=== PATIENT | female | born 1995 | race Two or more races ===

== ENCOUNTER → 2024-06-29 | Outpatient (CLI) | payer MEDICAID, SELFPAY ==
--- NOTE | 2024-06-29 | XR_ITS ---
Examination: MRI cervical spine without intravenous contrast Date and time of exam: June 29, 2024 0704 hrs. Indications: Neck pain radiating to the right arm beginning 2016 Technique: Multiple axial and sagittal sections of the cervical spine to been obtained. T2 weighted sagittal sections, TR 3, 270, TE 117 T1-weighted sagittal sections, TR 500, TE 11 T1-weighted axial sections, TR 607, TE 12, axial sections TR 18, TE 27 and T2 weighted transverse sections, TR 3920, TE 122. Findings: Adequate alignment cervical vertebral bodies No cervical fracture Intact odontoid No cervical disc narrowing No localized enlargement cervical cord Axial images demonstrate no focal cervical disc protrusion Impression: No cervical fracture No cervical disc narrowing No acquired soft tissue spinal stenosis
--- NOTE | 2024-06-29 | XR_ITS ---
MRI shoulder, right, without contrast. Date and time: June 29, 2024 0704 hrs. Indications: Neck pain radiating to the right arm beginning April 2017 Since paresthesias in the right upper extremity Technique: Multiple axial, sagittal and coronal sections of the shoulder have been obtained. Siemens high-resolution 1.5 María Elena MRI scanner is utilized. Axial fat-suppressed sections, TR 2350, TE 18 T2-weighted coronal fat-saturated images, TR 3500, TE 7100 T1-weighted coronal images, TR 500, TE 15 T2-weighted sagittal fat-saturated images, TR 3500, TE 57 T1-weighted sagittal sections, TR 504, TE 13. Findings: Supraspinatus tendon insertion is intact. Infraspinatus tendon insertion is intact. Subscapularis insertion is intact. Subscapularis bursa is not seen. Long head of the biceps is in the bicipital groove. No definite tear of the biceps superior labral anchor is seen. Retraction of the musculotendinous junction of the rotator cuff is not seen . Tendinosis pattern is noted seen. Distance between the acromium and humeral head is 4.9 mm Atrophy of the supraspinatus muscle is noted seen. Atrophy of the infraspinatus muscle is not seen. Sagittal sections demonstrate a horizontal acromion. Acromioclavicular joint demonstrates no significant arthritic change Osacromiale is not identified. Anterior superior labral tears. Bony glenoid fossa on the sagittal sections does not demonstrate osseous defect. Occult fracture or area of avascular necrosis is not seen. Acromioclavicular joint separation is not visible. Defect in the posterolateral margin of the humeral head is not seen Impression: Rotator cuff intact Anterior superior labral tears
== END | disposition home or self-care (01) ==
LOC: SMRI 06:46
DX: M54.2 Cervicalgia (principal); S43.431A Superior glenoid labrum lesion of right shoulder, initial encounter; X58.XXXA Exposure to other specified factors, initial encounter; Z87.39 Personal history of other diseases of the musculoskeletal system and connective tissue
CPT/HCPCS: 72141; 73221

== ENCOUNTER 2024-08-01 09:49 | Outpatient (RCR) | payer MEDICAID, SELFPAY ==
--- NOTE | 2024-08-01 10:22 | PTNOTE_ITS ---
PT OP Initial Eval Patient Information Outpatient Physical Therapy Treatment Date: 08/01/24 Visit Reasons: Right shoulder pain Medical Diagnosis: Right Shoulder Pain Treatment Dx #1: Right Shoulder Pain Start of Care: 08/01/24 Smoking Status Smoking Status: Never smoker Initial Assessment Subjective: Pt is a 29 y/o female reports of right shoulder pain after her ganglion cyst removal several months ago. Pt's most recent MRI showed torn superior labrum. Pt has not seen a surgeon yet. Pt has limitation with lifting, gripping, overhead motions, chores, self care, and performing recreational activities. Objective: Right Shoulder AROM: all motions are WFL Right Shoulder MMTs: grossly 4/5 Right Scapula MMTs: grossly 4/5 Special Test (+) active hunter's Palpation: TTP long head of biceps Assessment: Pt demonstrate functional right shoulder mobility and strength leading to minimal impairments. At this time Pt will not benefit from physical therapy. Recommend ortho consultation to determine severity of labrum tear. Pt was evaluated and d/c from care; thank you for your referrals. Short Term and Senior Care Goals 1) Eval and D/C 2) Follow up with MD GUTIERREZ Procedure Charges OP PT Eval Mod Complex 30 minutes: Yes
== END 2024-08-02 23:59 | disposition home or self-care (01) ==
LOC: CPTX 09:49
DX: M25.511 Pain in right shoulder (principal); S43.431D Superior glenoid labrum lesion of right shoulder, subsequent encounter; X58.XXXD Exposure to other specified factors, subsequent encounter
CPT/HCPCS: 97162

== ENCOUNTER 2025-04-24 20:10 | Inpatient (IN) | payer MEDICAID, SELFPAY ==
[2025-04-24] VITALS (16 sets, daily range): BP systolic 123–143; BP diastolic 67–91; PULSE 75–113; RESP 16–97; TEMP 36.9; O2SAT 95–98; BMI 40.6
[2025-04-24 20:52] LABS: ROM Kit Lot # 58106258; ROM Swab Mixed By: MARTB3; Swb Mxed in Solvent 1 min? Yes
[2025-04-24 20:53] LABS: Rupture of Fetal Membranes Positive (Negative)
[2025-04-24 21:50] LABS: Basophils # (Auto) 0.0 Thou/mm3 (0.0-0.2); Basophils % (Auto) 0 % (0-2.5); Eosinophils # (Auto) 0.0 Thou/mm3 (0.0-0.5); Eosinophils % (Auto) 0 % (0-10); Hematocrit 39.1 % (36.0-46.0); Hemoglobin 13.7 g/dL (12.0-16.0); Immature Granulocytes Auto 0.05 Thou/mm3 (0.00-0.00); Lymphocytes # (Auto) 3.0 Thou/mm3 (1.0-4.8); Lymphocytes % (Auto) 30 % (10-50); Mean Corpuscular HGB Conc 35.0 g/dl (31.0-37.0); Mean Corpuscular Hemoglobin 30.6 pg (25.0-35.0); Mean Corpuscular Volume 87 fL (80-100); Monocytes # (Auto) 1.0 Thou/mm3 (0.0-0.8); Monocytes % (Auto) 10 % (0-12); Neutrophils # (Auto) 6.0 Thou/mm3 (1.8-7.7); Neutrophils % (Auto) 60 % (37-80); Nucleated Red Blood Cell # 0.00 Thou/mm3 (0.00-0.00); Nucleated Red Blood Cell % 0 /100 WBC (0); Platelet Count 306 Thou/mm3 (140-440); RDW Standard Deviation 41.2 fL (36.4-46.3); Red Blood Count 4.48 Miln/mm3 (4.00-5.20); White Blood Count 10.0 Thou/mm3 (3.6-11.0)
--- NOTE | 2025-04-24 21:56 | PD.LDHP ---
Documentation for date of: 04/24/25 OB Labor/Induct. HPI History of Present Illness : 1 Para: 0 Term pregnancies: 0 pregnancies: 0 Living children: 0 History of Abortions: Spontaneous and Elective: 0 History of Vaginal deliveries: 0 History of sections: No History of : No Date of last menstrual period: 08/04/24 NILDA: 05/11/25 Gestational age based on last menstrual period: 36 History of present illness: H and P dictated in Nuance on STAT line #9: [id number] History of Present Adequate Care: Yes Labs Labs: Positive: Rubella Titre, Negative: RPR, Hepatitis B and HIV and Unknown: Chlamydia, Gonorrhea, Herpes Type 1, Herpes Type 2, Group Beta Strep and Covid-19 Past Medical History Surgical History SURGICAL: Negative Section Meds Home Medications and Allergies Allergies Allergy/AdvReac Type Severity Reaction Status Date / Time No Known Allergies Allergy Verified 04/24/25 21:05 OB Exam Physical Exam Vital signs: Temp Pulse Resp BP Pulse Ox 98.5 F 83 18 143/91 H 98 04/24/25 20:24 04/24/25 20:56 04/24/25 20:24 04/24/25 20:56 04/24/25 21:05 OB Results Labs 04/24/25 21:25 04/24/25 21:25
[2025-04-24] MEDS: Ampicillin Inj 2,000 MG in SODIUM CHLORIDE 0.9% (POP) 100 ML 200 MG IV (22:03)
[2025-04-24] MEDS: RINGERS LACTATED 1000 ML 1,000 ML 125 ML IV (22:03)
[2025-04-24 23:00] LABS: Fibrinogen 618 mg/dL (175-375); INR 0.9 (0.9-1.3); Partial Thromboplastin Time 27.2 Seconds (22.0-36.0); Prothrombin Time 9.8 Seconds (9.0-12.2)
[2025-04-24] MEDS: GENTAMICIN/NS 80 MG IVPB 80 MG in PRE-MIXED 1 BAG 50 MG IV (23:11)
[2025-04-25] VITALS (288 sets, daily range): BP systolic 98–182; BP diastolic 51–85; PULSE 54–166; RESP 16–22; TEMP 36.9–37.4; O2SAT 57–100
[2025-04-25 00:05] LABS: Syphilis Nonreactive (Nonreactive)
[2025-04-25 01:36] LABS: Alanine Aminotransferase 16 U/L (10-49); Albumin, Serum 4.1 gm/dL (3.5-5.0); Albumin/Globulin Ratio 1.5 (1.2-2.2); Alkaline Phosphatase 307 U/L (46-116); Anion Gap 10 (7-16); Aspartate Amino Transferase 30 U/L (0-34); BUN/Creatinine Ratio 8 Ratio (12-20); Bilirubin,Total 0.9 mg/dL (0.3-1.2); Blood Urea Nitrogen 6 mg/dL (9-23); Calcium 9.7 mg/dL (8.3-10.6); Calcium (Corrected) 9.7 mg/dL (8.5-10.1); Carbon Dioxide 24.0 mMol/L (20.0-31.0); Chloride 105 mMol/L (98-107); Creatinine (Component) 0.8 mg/dL (0.6-1.3); Estimated Creatinine Clearance 117.6 mL/min (>60); Globulin 2.7 gm/dL (2.3-3.5); Glucose 90 mg/dL (74-106); Osmolality,Calculated 275 (275-295); Potassium 4.0 mMol/L (3.4-5.1); Sodium 139 mMol/L (136-145); Total Protein 6.8 gm/dL (5.7-8.2); Uric Acid 4.0 mg/dL (3.1-7.8); eGFR > 60 See Note
[2025-04-25] MEDS: OXYTOCIN in NS 30 units 30 UNIT/500 ML BAG IV (02:34)
[2025-04-25] MEDS: Ampicillin Inj 2,000 MG in SODIUM CHLORIDE 0.9% (POP) 100 ML 100 MG IV ×2 (03:53→11:37)
--- NOTE | 2025-04-25 06:33 | PD.LDPN ---
Documentation for date of: 04/25/25 OB Labor Progress Note Pelvic Exam Dilation (cm): 3 Effacement (%): 80 station: -2 Amniotic membrane status: Leaking Contractions Monitor mode: External Contraction frequency: 3-7 Contraction pattern: Tetanic Contraction intensity: Mild Status status: Category l Assessment and Plan Comments: Epidural Anticipate Amp/Gent for prolonged rupture of membranes History of Present Illness HPI Wants an Epidural
[2025-04-25] MEDS: GENTAMICIN/NS 80 MG IVPB 80 MG in PRE-MIXED 1 BAG 50 MG IV ×2 (07:18→14:49)
[2025-04-25 09:36] LABS: Chlamydia trachomatis PCR Negative (Not Detect); Neisseria Gonorrhoeae DNA PCR Negative (Not Detect); Trichomonas Negative (Negative)
--- NOTE | 2025-04-25 10:32 | ESHP_ITS ---
RE: KALE NINA : 1995 DATE OF ADMISSION: 04/24/2025 HISTORY OF PRESENT ILLNESS: This is a 30-year-old 1, para 0 with due date of 05/11/2025 with intrauterine at 37 weeks and 4 days, who presents to labor and delivery complaining of leaking since 10:00 this morning and is noted to be ruptured and in early labor, the patient has history of gestational diabetes mellitus during her , but she is diet controlled. She had a maternal medicine ultrasound during her , which showed normal anatomy. Her most recent ultrasound on 04/16/2025 showed overall growth at the 67th percentile. ALLERGIES: NO KNOWN DRUG ALLERGIES. MEDICATIONS: 1. multivitamin 1 p.o. daily. 2. Aspirin 81 mg 1 p.o. daily. PAST MEDICAL HISTORY: Gestational diabetes mellitus class A2, polycystic ovarian syndrome, urinary tract infection due to group B strep in the first trimester, cervical dysplasia, chlamydia cervicitis, obesity. SOCIAL HISTORY: She denies any alcohol, drug use or smoking. FAMILY HISTORY: Hypertension, stroke, diabetes, autism. REVIEW OF SYSTEMS: She denies any chest pain, palpitations, cough, fever, shortness of breath or lower extremity pain. She denies any headache, change in vision or right upper quadrant pain. PHYSICAL EXAMINATION: VITAL SIGNS: Blood pressure 121/80, heart rate 88, respiration 18, temperature is 98.6. HEENT: Oropharynx and sclerae clear. LUNGS: Clear to auscultation bilaterally. HEART: Regular rate and rhythm. ABDOMEN: Gravid consistent with estimated weight 7.5 pounds. Pelvic Exam: See RN notes. EXTREMITIES: Nontender. SKIN: No gross rashes or lesions. NEUROLOGIC: No focal deficit. ASSESSMENT AND PLAN: Intrauterine at 37 weeks and 4 days, gestational diabetes mellitus class A2, labor, anticipate spontaneous vaginal delivery, ampicillin, gentamicin for prolonged rupture of membranes. Informed consent was obtained. The patient was made aware of the risks complications, alternatives and benefits of the proposed procedure and she agrees with operative vaginal delivery and delivery if indicated. DT: 21:20:16 TT: 22:04:00 Ref: [id number] - TID: [id number] [facility]
[2025-04-25] MEDS: RINGERS LACTATED 1000 ML 1,000 ML 125 ML IV ×2 (11:05→14:51)
--- NOTE | 2025-04-25 16:37 | PD.LDPN ---
Documentation for date of: 04/25/25 OB Labor Progress Note Pain Control Comments: Epidural Pelvic Exam Dilation (cm): 10 Effacement (%): 100 station: -1 Amniotic membrane status: Ruptured Contractions Monitor mode: External Contraction frequency: 2-3 Contraction pattern: Tetanic Contraction intensity: Moderate Status status: Category ll Assessment and Plan Comments: Epidural off to mount a better expulsive effort Encourage Effective Pushing
--- NOTE | 2025-04-25 17:26 | PD.LDDS ---
DS: Providers Provider Date of admission: 04/24/25 22:07 Primary care physician: Physician No Primary/Family Admitting Provider: Reuben Soriano MD Attending Provider on Admission: Reuben Soriano MD Attending Provider on DC: Reuben Soriano MD Discharging Provider: Reuben Soriano MD DS: Diagnosis Problem List Completed Was Problem List Reviewed/Reconciled?: Yes Summary/Hosp Course Brief History: Wants an Epidural Peripartum Data Delivery Method: Normal Vaginal Delivery Episiotomy Description: None Time Spent with Patient Time attestation: Total time spent providing and/or coordinating discharge services: Exam Vital Signs Temp Pulse Resp BP Pulse Ox O2 Del Method 98.6 F 97 18 126/71 98 Room Air 04/25/25 16:05 04/25/25 17:24 04/25/25 16:05 04/25/25 17:24 04/25/25 17:23 04/25/25 16:05 Discharge Plan Plan Patient Disposition: HOME (Self Care) Patient condition on transfer: Stable Prescriptions/Referrals Prescriptions/Med Rec: New ibuprofen 600 mg tablet 600 mg PO Q6H PRN (Reason: pain) Qty: 30 0RF Discontinued ibuprofen 800 mg tablet 800 mg PO Q8H Qty: 30 0RF Referrals: No Primary/Family,Physician [Primary Care Provider] Patient/Caregiver Discharge Instructions Discharge Activity: activity as tolerated Other Discharge Activity Instructions:: Follow up office 6 weeks Education Materials: After a Vaginal , After Delivery Concerns, Breast Care After Print Language: Arabic Stand Alone Forms: Eun Award Info., Patient Portal Info Letter Discharge Order Discharge Orders: Discharge (Routine); Ordered 04/26/25 Ordered By: Reuben Soriano Planned Discharge Date 04/26/25
[2025-04-25] MEDS: BENZO/LANO/ALOE (Dermoplast) 60 GM CAN 1 SPRAY TOP (17:40)
[2025-04-25] MEDS: TRANEXAMIC ACID 1,000 MG IVPB 1,000 MG/100 ML BAG 200 MG IV (17:40)
[2025-04-25] MEDS: OXYTOCIN in NS 20 units 20 UNIT/1,000 ML BAG 125 UNIT IV (17:40)
[2025-04-25] MEDS: MINERAL OIL 30 ML UDC TOP (17:41)
[2025-04-25] MEDS: IBUPROFEN TAB 400 MG TABLET 800 MG PO (19:07)
[2025-04-25 22:23] LABS: Basophils # (Auto) 0.0 Thou/mm3 (0.0-0.2); Basophils % (Auto) 0 % (0-2.5); Eosinophils # (Auto) 0.0 Thou/mm3 (0.0-0.5); Eosinophils % (Auto) 0 % (0-10); Hematocrit 35.2 % (36.0-46.0); Hemoglobin 12.3 g/dL (12.0-16.0); Immature Granulocytes Auto 0.07 Thou/mm3 (0.00-0.00); Lymphocytes # (Auto) 1.7 Thou/mm3 (1.0-4.8); Lymphocytes % (Auto) 10 % (10-50); Mean Corpuscular HGB Conc 34.9 g/dl (31.0-37.0); Mean Corpuscular Hemoglobin 31.4 pg (25.0-35.0); Mean Corpuscular Volume 90 fL (80-100); Monocytes # (Auto) 1.0 Thou/mm3 (0.0-0.8); Monocytes % (Auto) 6 % (0-12); Neutrophils # (Auto) 14.5 Thou/mm3 (1.8-7.7); Neutrophils % (Auto) 84 % (37-80); Nucleated Red Blood Cell # 0.00 Thou/mm3 (0.00-0.00); Nucleated Red Blood Cell % 0 /100 WBC (0); Platelet Count 265 Thou/mm3 (140-440); RDW Standard Deviation 43.8 fL (36.4-46.3); Red Blood Count 3.92 Miln/mm3 (4.00-5.20); White Blood Count 17.2 Thou/mm3 (3.6-11.0)
[2025-04-26] VITALS: BP 113/73; PULSE 99; RESP 16; TEMP 36.8; O2SAT 97
[2025-04-26 03:44] VITALS: BP 124/69; PULSE 89; RESP 18; TEMP 36.6; O2SAT 96
[2025-04-26 07:10] VITALS: BP 110/74; PULSE 89; RESP 16; TEMP 36.6; O2SAT 96
--- NOTE | 2025-04-26 07:34 | ESPR_ITS ---
RE: KALE NINA : 1995 DATE OF SERVICE: 04/26/2025 day number 1. The patient denies any problem or complaint. Blood pressure 124/69, heart rate 89, respirations 18, temperature is 97.8. Pulse ox is 96% on room air. Lungs clear to auscultation bilaterally. Heart, regular rate and rhythm. Abdomen, fundus is firm. Extremities nontender. Hemoglobin pre-delivery is 13.7, post-delivery is 12.3. ASSESSMENT: day number 1, status post spontaneous vaginal delivery. PLAN: Discharge home when baby is cleared. Discharge instructions given. Follow up in the office in 6 weeks. DT: 07:18:22 TT: 07:32:00 Ref: [id number] - TID: [id number]
[2025-04-26] MEDS: DOCUSATE SOD 100 MG CAPSULE PO (08:25)
--- NOTE | 2025-04-26 10:29 | PC.SS ---
OFFICE EXECUTIVEAlba, met with patient [id number] to do initial assessment due to having a history of depression and anxiety. FELTER TENNIS [employer]ALLS introduced herself, role in the agency, reason for visit, and discussed limits of confidentiality. Patient appeared alert and oriented to self, time, place, and situation. Patient appears stated age. Patient made good eye contact. Patient?s attitude appeared pleasant and cooperative. Patient?s behavior appeared ordinary. Patient?s mood appears ordinary. No signs of delusions or hallucinations. This is 30-year-old, monolingual, single, female who presented to the hospital to deliver her son, Manpreet. Patient reported that she resides in a house (address and phone number verified) with her sister, Venancio Carpenter. Patient reported that the father of the child, Chadwick Perrin ([phone]) is involved and will remain with them for a few months. She reports being independent with all her ADLs, no DME use. Patient is currently receiving disability and WIC. Patient denied any history or present problems with domestic violence. Patient reported having a history of depression and anxiety. Patient reported that she sought outpatient therapy services. Patient self-discontinued when therapy service were no longer necessary. Patient denies any history of suicide attempts, 5150 holds. Patient denied any HI, SI. When medically clear, patient will return home and her mother, Phuong Draper, and sister, Venancio Schwartz, will provide physical and emotional support. Patient declined any community resources.
[2025-04-26 11:10] VITALS: BP 126/79; PULSE 71; RESP 17; TEMP 36.7; O2SAT 97
[2025-04-26 15:05] VITALS: BP 122/87; PULSE 84; RESP 17; TEMP 36.8; O2SAT 98
--- NOTE | 2025-04-30 20:55 | PD.LDDELS ---
Data (Lee) Data Hx Section: No : 1 Term: 0 : 0 Livin Abortions: Spontaneous & Theraputic: 0 Delivery Data (Lee) Labor Data Initiation of labor: Augmentation Induction/Augmentation Agent: Pitocin and Artificial ROM ROM date: 04/23/25 ROM time: 10:30 Amniotic membrane rupture type: Spontaneous Amniotic fluid description: Clear Delivery Data Onset of labor date: 04/25/25 Onset of labor time: 06:00 Complete dilation date: 04/25/25 Complete dilation time: 14:36 [place] delivery date: 04/25/25 [place] delivery time: 17:02 Placenta delivery date: 04/25/25 Placenta delivery time: 17:12 Stage 1 total time: Labor - Stage 1 Duration 8 hours and 36 minutes Delivered by: Reuben Soriano Delivery nurse: ESTHER Garciaorn nurse: ESTHER Bronson Customer Support Advisor at delivery: No Support person(s) at delivery: FOB and Mother of pt. Other staff at delivery: Dania, Valery Garnica, Student Nurse Delivery Method Delivery method: Normal Vaginal Delivery Presentation: Vertex Anesthesia Type Anesthesia Type: Epidural Placenta Placenta delivery description: Spontaneous Cord blood sent to lab: Yes cord blood collection: Cord Blood Type Episiotomy Episiotomy description: None Umbilical Cord cord description: Nuchal Cord [place] Data (Lee) [place] Data order: 1 's gender: Male Identification band number: [id number] weight (gms): 7 lb 10.753 oz Weight (pounds): 7 lbs and 10.8 ozs [place] length: 19.09 in 1 minute: 8 5 minutes: 9
== END 2025-04-26 20:00 | disposition home or self-care (01) | DRG 560 ==
LOC: S4SX 04-25 17:24 → S4NX 04-25 19:57
PROVIDERS: Admitting Provider Specialist; Visit Provider Specialist
DX: O42.92 Full-term premature rupture of membranes, unspecified as to length of time between rupture and onset of labor (principal); Z37.0 Single live birth; Z3A.37 37 weeks gestation of pregnancy; O69.81X0 Labor and delivery complicated by cord around neck, without compression, not applicable or unspecified; Z79.82 Long term (current) use of aspirin; Z86.32 Personal history of gestational diabetes
CPT/HCPCS: 36415; 59025; 59409; 80053; 81001; 84112; 84550; 85025; 85384; 85610; 85730; 86780; 86850; 86900; 86901; 87491; 87591; 87661; 94762; J0290; J1580; J2590; J2795; J3010; J3490; J7120; A9270